=== PATIENT | male | born 2000 | race Asian ===

== ENCOUNTER 2020-02-28 18:17 | Outpatient (REF) | payer MEDICAID, SELFPAY | END 2020-02-28 18:18 | disposition home or self-care (01) | LOC: HO.LAB 18:17 | PROVIDERS: Visit Provider Nurse Practitioner Primary Care | DX: Z20.828 Contact with and (suspected) exposure to other viral communicable diseases (principal) | CPT/HCPCS: U0003 ==

== ENCOUNTER 2020-03-03 11:33 | Emergency (ER) | payer MEDICAID, SELFPAY ==
[2020-03-03 11:48] VITALS: BP 128/68; PULSE 66; TEMP 36.7; O2SAT 100; BMI 31.9
--- NOTE | 2020-03-03 11:50 | ED.URI ---
HPI - URI/Sore Throat General Stated Complaint: covid swab Time Seen by Provider: 03/03/20 11:36 Source: patient Mode of arrival: ambulatory Limitations: no limitations History of Present Illness HPI Narrative: OFFERS NO COMPLAINTS. HERE FOR COVID-19 TEST FOR TRAVEL CLEARANCE. Associated symptoms: denies other symptoms Treatments prior to arrival: none Related Data Allergies Allergy/AdvReac Type Severity Reaction Status Date / Time No Known Allergies Allergy Unverified 12/28/19 19:19 [No Known Allergies*] Review of Systems Review of Systems: Constitutional: No Weight loss, No Fever, No Chills, No Night Sweats, No Fatigue, No Malaise ENT/Mouth: No Hearing loss, No Ear Pain, No Nasal Congestion, No Sinus Pain, No Hoarseness, No sore throat, No Rhinorrhea, No Swallowing Difficulty Eyes: No Eye Pain, No Swelling, No Redness, No Foreign Body, No Discharge, No Vision Changes Cardiovascular: No Chest Pain, No SOB, No Dyspnea on Exertion, No Orthopnea, No Edema, No Palpitations Respiratory: No Cough, No Sputum, No Wheezing, No Smoke Exposure, No Dyspnea Gastrointestinal: No Nausea, No Vomiting, No Diarrhea, No Constipation, No abdominal Pain, No Hematochezia, No Melena Genitourinary: no irregular bleeding, No Dysuria, No Urinary Frequency, No Hematuria, No Urinary Incontinence, No Urgency, No Flank Pain, No Urinary Flow Changes, No Hesitancy Musculoskeletal: No joint pain, No Myalgias, No Joint Swelling Skin: No Skin Lesions, No rash Neuro: No Weakness, No Numbness, No Paresthesias, No Loss of Consciousness, No Dizziness, No Headache Psych: No Social Issues Heme/Lymph: No Bruising, No Bleeding,No Lymphadenopathy Endocrine: No Polyuria, No Polydipsia, No Temperature Intolerance Yes all other systems are reviewed and are negative Physical Exam Vital Signs: reviewed Const: General: cooperative and healthy appearing; No acute distress or intoxicated appearing Nutritional Appearance: average body habitus Orientation/consciousness: patient oriented x3 HENMT: Head: Yes normal to inspection Ears: hearing grossly normal bilaterally Eyes: General: appearance normal, both eyes and all related structures Visual Coy: normal visual coy by confrontation Neck: Neck: Yes normal visual inspection, No positive Brudzinski's sign, No positive Kernig's sign and No tender Thyroid: Thyroid normal Chest: Chest palpation & inspection: normal inspection of the chest Resp: Effort & Inspection: normal respiratory effort Cardio: Jugular venous distension: no JVD Neuro: General: patient oriented x3 Extrem: General: Yes normal to inspection Discharge Plan Discharge Clinical Impression: Normal exam Patient Disposition: Home, Self-Care Additional Instructions: Your COVID-19 PCR test was NEGATIVE today 03/03/2020
[2020-03-03 12:10] LABS: COVID-19 Test Negative (Negative)
== END 2020-03-03 12:00 | disposition home or self-care (01) ==
PROVIDERS: Nurse Practitioner Primary Care; Emergency Provider Emergency Medicine
DX: Z20.828 Contact with and (suspected) exposure to other viral communicable diseases (principal)
CPT/HCPCS: 87635; 99281; 99283

== ENCOUNTER 2020-04-24 16:54 | Outpatient (REF) | payer OTHER, SELFPAY ==
[2020-04-24 17:51] LABS: COVID-19 Test Negative (Negative)
== END 2020-04-24 16:55 | disposition home or self-care (01) ==
LOC: HO.LAB 16:54
PROVIDERS: Visit Provider Internal Medicine
DX: Z20.822 Contact with and (suspected) exposure to COVID-19 (principal)
CPT/HCPCS: 36415; 87635

== ENCOUNTER 2020-05-14 13:38 | Outpatient (REF) | payer OTHER, SELFPAY | END 2020-05-14 13:39 | disposition home or self-care (01) | LOC: HO.LAB 13:38 | PROVIDERS: Visit Provider Internal Medicine | DX: Z20.822 Contact with and (suspected) exposure to COVID-19 (principal) | CPT/HCPCS: 36415; C9803; U0003; U0005 ==

== ENCOUNTER 2020-08-17 21:18 | Outpatient (REF) | payer OTHER, SELFPAY ==
[2020-08-17 23:08] LABS: Influenza A PCR NEGATIVE (Negative); Influenza B PCR NEGATIVE (Negative); Resp Syncy Virus RNA Qual PCR NEGATIVE (Negative); SARS COV2 PCR INHOUSE NEGATIVE (Negative)
== END 2020-08-17 21:19 | disposition home or self-care (01) ==
LOC: HO.LAB 21:18
PROVIDERS: Visit Provider Internal Medicine
DX: Z20.822 Contact with and (suspected) exposure to COVID-19 (principal)
CPT/HCPCS: 0241U; 36415

== ENCOUNTER 2021-09-25 23:27 | Emergency (ER) | payer OTHER, SELFPAY ==
--- NOTE | ~2021-09-25 | XR_ITS ---
EXAMINATION: XR HAND, RIGHT CLINICAL INFORMATION: Post reduction COMPARISON: 09/25/2021 TECHNIQUE: PA, lateral, and oblique views of the right hand. XR/XR hand RT 2V FINDINGS/IMPRESSION: No change in alignment of the acute angulated and mildly displaced fracture of the fifth metacarpal neck. No additional fractures. No dislocation. Soft tissue swelling dorsal to the carpus. No radiopaque foreign bodies.
--- NOTE | ~2021-09-25 | XR_ITS ---
EXAMINATION: XR HAND, RIGHT CLINICAL INFORMATION: Swelling and pain COMPARISON: None TECHNIQUE: PA, lateral, and oblique views of the right hand. XR/XR hand RT 2V FINDINGS/impression: Acute angulated and mildly displaced fracture of the fifth metacarpal neck. No additional fractures. No dislocation. Soft tissue swelling dorsal to the carpus. No radiopaque foreign bodies.
[2021-09-25 23:28] VITALS: BP 156/78; PULSE 60; RESP 15; TEMP 36.1; O2SAT 97; BMI 30.2
--- NOTE | 2021-09-25 23:41 | ED_ITS ---
HPI - Extremity Problem General Chief complaint: Extremity Injury, Upper Stated complaint: Hand Inj Time Seen by Provider: 09/25/21 23:41 Source: patient Mode of arrival: ambulatory Limitations: no limitations History of Present Illness HPI Narrative: Patient accidentally smashed his right hand to a metal pole in the basement comes in with significant swelling of the lateral aspect of the dorsum of the hand neurovascular intact normal sensation no other injury Related Data Previous Rx's Medication Instructions Recorded phentermine 37.5 mg tablet 37.5 mg PO DAILY in morning #30 06/05/20 tabs Allergies Allergy/AdvReac Type Severity Reaction Status Date / Time No Known Allergies Allergy Unverified 12/28/19 19:19 [No Known Allergies*] Review of Systems Review of Systems: Yes all other systems are reviewed and are negative [facility] Social History Social History Use of substances other than those prescribed or required for medical reasons: No Advance Directives: No Physical Exam Vital Signs: Vital Signs: Last Vital Signs Temp 97 F 09/25/21 23:28 Pulse 60 09/25/21 23:28 Resp 15 09/25/21 23:28 BP 156/78 H 09/25/21 23:28 Pulse Ox 97 09/25/21 23:28 O2 Del Method 09/25/21 23:28 BMI result Body Mass Index 30.2 Const: General: comfortable and no acute distress Extrem: Hand/finger images: 1. Soft tissue swelling with obvious deformity at the base of 4th and 5th fingers neurovascularly intact MDM - Extremity (Nontraumatic) MDM Narrative Medical decision making narrative: Patient with right 5th metacarpal neck fracture ulnar gutter splint was applied patient advised to follow with Orthopedics closed reduction was tried after hematoma block using 2% lidocaine which was unsuccessful Procedures Orthopedic Splinting/Casting Injury #1: Side: right Upper Extremity Injury Location: hand Upper Extremity Immobilizer: ulnar gutter Discharge Plan Discharge Clinical Impression: Closed boxer's fracture Patient Disposition: Home, Self-Care Instructions: Boxer Fracture (ED) Additional Instructions: Wear the splint for support Follow-up with orthopedics in 2-3 days Ibuprofen for pain Prescriptions: No Action phentermine 37.5 mg tablet 37.5 mg PO DAILY Qty: 30 0RF Rx Instructions: must administer 30 minutes before or 1-2 hours after breakfast Referrals: Kike Herrera MD [Physician] - 5 days Interventions: ED Discharge Assessment Last Done: 09/26/21 00:11 Discharge Date/Time: 09/26/21 00:32
[2021-09-25] MEDS: Ibuprofen 600 MG TABLET PO (23:42)
--- NOTE | 2021-09-26 00:02 | PC.NURSE ---
Ulnar splint applied to pts left hand. Pt tolerated well.
--- NOTE | 2021-09-26 00:10 | PC.NURSE ---
Pt medicated per DEV Splint placed by NICHOLAS Robin
== END 2021-09-26 00:32 | disposition home or self-care (01) ==
LOC: HO.ED 09-26 00:12
PROVIDERS: Emergency Provider Internal Medicine; PCP Internal Medicine
DX: S62.336A Displaced fracture of neck of fifth metacarpal bone, right hand, initial encounter for closed fracture (principal); W22.09XA Striking against other stationary object, initial encounter; Y93.9 Activity, unspecified; Y92.9 Unspecified place or not applicable; Y99.9 Unspecified external cause status
CPT/HCPCS: 26605; 73120; 99202; 99284

== ENCOUNTER 2021-09-26 10:40 | Outpatient (REF) | payer OTHER, SELFPAY ==
--- NOTE | ~2021-09-26 | XR_ITS ---
EXAMINATION: XR HAND, RIGHT CLINICAL INFORMATION: Pain right hand. COMPARISON: 09/26/2021 TECHNIQUE: PA, lateral, and oblique views of the right hand. FINDINGS: The right 5th distal metacarpal fracture is stabilized with a dorsal hard cast. There is no change in the volar angulation of the fracture postreduction. No other bony abnormality seen. XR/XR hand RT min 3V IMPRESSION: Stabilized boxer's fracture right 5th metacarpal with volar angulation and a dorsal hard cast. No change in the fracture from 09/26/2021.
== END 2021-09-26 10:41 | disposition home or self-care (01) ==
LOC: HO.HOSX 10:40
PROVIDERS: Visit Provider Physician Assistant
DX: M79.641 Pain in right hand (principal)
CPT/HCPCS: 73130

== ENCOUNTER 2021-11-05 10:48 | Outpatient (REF) | payer OTHER, SELFPAY ==
--- NOTE | ~2021-11-05 | XR_ITS ---
EXAMINATION: XR HAND, RIGHT CLINICAL INFORMATION: Fracture COMPARISON: Previous x-ray most recent 09/26/2021 TECHNIQUE: PA, lateral, and oblique views of the right hand. FINDINGS: There is a fracture of the fifth metacarpal neck. Alignment appears unchanged with mild volar displacement and angulation of the metacarpal head with respect to the more proximal shaft.. There is increased bony callus formation at the fracture suggestive of healing. No other fracture is seen. Soft tissues are unremarkable. XR/XR hand RT min 3V IMPRESSION: Healing right fifth metacarpal fracture.
== END 2021-11-05 10:49 | disposition home or self-care (01) ==
LOC: HO.HOSX 10:48
PROVIDERS: Visit Provider Physician Assistant
DX: S62.332D Displaced fracture of neck of third metacarpal bone, right hand, subsequent encounter for fracture with routine healing (principal); X58.XXXD Exposure to other specified factors, subsequent encounter
CPT/HCPCS: 73130; 99212